=== PATIENT | male | born 1980 | race Caucasian/White ===

== ENCOUNTER 2024-10-11 07:32 | Outpatient (CLI) | payer OTHER, SELFPAY ==
--- NOTE | ~2024-10-11 | US_ITS ---
Left groin ULTRASOUND Ordering provider: Angeles Ye, ACCOUNTS SPECIALIST History: . Non-recurrent inguinal hernia w/o obstruction or gangrene . Comparison: None. FINDINGS/impression: Breech is noted in the left groin with movement suggestive of hernia measuring 2.1 x 1.8 cm. Clinical correlation advised. Reviewed, dictated and finalized at location A. C DEVELOPER
== END 2024-10-11 07:33 | disposition home or self-care (01) ==
PROVIDERS: PCP Registered Nurse; Visit Provider Registered Nurse
DX: K40.90 Unilateral inguinal hernia, without obstruction or gangrene, not specified as recurrent (principal)
CPT/HCPCS: 76882

== ENCOUNTER 2024-12-10 07:49 | Outpatient (CLI) | payer OTHER, SELFPAY ==
--- OUTSIDE RECORDS SUMMARY | 2024-12-10 07:58 | XMS_ITS | Clinical Summary ---
Author Organization [facility] Address [address] [place] [address] Care Team Providers Care Director New Product Name Role Phone Angeles Ye Primary Care Provider Allergies No known active allergies Medications vitamin B-12 (CYANOCOBALAMIN) 250 MCG Tab Take 1 tablet (250 mcg total) by mouth daily. Active vitamin D3 (CHOLECALCIFEROL ) 25 mcg tablet Take 1 tablet (25 mcg total) by mouth daily. Active BIOTIN OR Active VITAMIN E OR Active Active Problems Problem Noted Date Diagnosed Date Moderate episode of recurren t major depressive disorder ([facility]) 05/09/2020 Anxiety 05/09/2020 Current every day smoker 05/09/2020 Encounters Date Type Department Care Team Description 10/14/2024 Scan [facility] Scanned, Doc Med Group 10/11/2024 Scan [facility] INFO [facility] Scanned, Doc Med Group Ultrasound (SCAN) 10/11/2024 Telephone [facility] Family & Internal [address] [phone] Angeles Ye APNP Problem ([place]) 10/08/2024 2:20 PM PATIENT SVCS MGR Office Visit [facility] Internal [address] [phone] Angeles Ye APNP Disability 10/08/2024 Travel 10/07/2024 Scan [facility] HEALTH INFO SRVCS Scanned, Doc Med Group 09/28/2024 10:40 AM PATIENT SVCS MGR Office Visit [facility] Family & Internal Medicine [address] [phone] Angeles Ye, FAVIO Lump (Pelvic area, left) 09/28/2024 Travel from Last 3 Months Immunizations Name Administration Dates Next Due Influenza Adult (Generic) 08/12/2020 Tdap (Adacel) 12/30/2023 Family History Medical History Relation Comments Alcohol Abuse Father Cancer Father Alcohol Abuse Mother Drug Abuse Mother Mental Health Mother Alcohol Abuse Sister 1 Depression Sister 1 Drug Abuse Sister 1 Mental Health Sister 1 Miscarriages / Stillbirths Sister 1 Mental Health Sister 2 Alcohol Abuse Sister 3 Drug Abuse Sister 3 Mental Health Sister 3 Relation Status Comments Father Mother Alive Sister 1 Alive Sister 2 Alive Sister 3 Social History Tobacco Use Types Packs/Day Years Used Date Smoking Tobacco: Some Days Cigarettes 0.3 33.1 Started: 1991 Smokeless Tobacco: Never Tobacco Cessation:Ready to Q uit: Not Asked; Counseling Given: Not Answered Comments:provider to prevocational/rehabilitation counselor Alcohol Use Standard Drinks/Week Comments Yes 10 (1 standard drink = 0.6 oz pu re alcohol) AUDIT-C Answer Date Recorded Frequency of Alcohol Consumption 4 or more times a week 05/08/2020 Average Number of Drinks 5 or 6 020 Frequency of Binge Drinking Daily or almost cordell y 05/08/2020 PHQ-2 Answer Date Recorded Patient Health Questionnaire-2 Score 0 12/30/2023 Sex and Gender Information Value Date Recorded Sex Assigned at Not on file Legal Sex Male 11:18 PM PATIENT SVCS MGR Gender Identity Not on file Sexual Orientation Not on file Last Filed Vital Signs Vital Sign Reading Time Taken Comments Blood Pressure 108/64 10/08/2024 2:11 PM PATIENT SVCS MGR Pulse 82 10/08/2024 2:11 PM PATIENT SVCS MGR Temperature 36.8 C (98.3 F) 10/08/2024 2:11 PM PATIENT SVCS MGR Respiratory Rate 16 10/08/2024 2:11 PM PATIENT SVCS MGR Oxygen Saturation 98% 10/08/2024 2:11 PM PATIENT SVCS MGR Inhaled Oxygen Concentration - - Weight 65.9 kg (145 lb 3.2 oz) 10/08/2024 2:11 P M PATIENT SVCS MGR Height 177.8 cm (5' 10 ) 10/08/2024 2:11 PM PATIENT SVCS MGR Body Mass Index 20.83 10/08/2024 2:11 PM PATIENT SVCS MGR Plan of Treatment Health Maintenance Due Date Last Done Comments Annual Physical 1985 Pneumococcal Vaccine: Pediat rics (0 to 5 Years) and At-Risk Patients (6 to 64 Years) (1 of 2 - PCV) 1988 Hepatitis C 2000 Hepatitis B Vaccines (1 of 3 - 19+ 3-dose series) 2001 COVID-19 Vaccine ( - 2023-2 5 season) 2024 Influenza Adult (#1) 2024 08/12/2020 PHQ-2 (Physician [place]) 10/27/2024 12/30/2023 PHQ-2 (Physician [place]) 12/29/2024 12/30/2023 DTaP, Tdap and Td Vaccines ( 2 - Td or Tdap) 12/29/2033 12/30/2023 HPV Vaccines Aged Out No longer eligi ble based on patient's age to complete this topic Meningococcal B Vaccine Aged Out No l onger eligible based on patient's age to complete this topic Meningococcal Vaccine Aged Out No martita astrid eligible based on patient's age to complete this topic RSV Immunizations Under 20 Months Aged Out No longer eligible based on patient's age to complete this topic Procedures Procedure Name Priority Date/Time Associated Diagnosis Comments ULTRASOUND GENERIC (SCAN ORDER) 10/11/2024 from Last 3 Months Results * ULTRASOUND GENERIC (SCAN ORDER) (10/11/2024) Anatomical Region Laterality Modality Other 10/11/2024 us Doc Med Group Scanned SCANNING Final Resu lt from Last 3 Months Insurance [facility] UMR Advance Directives Documents on File Type Date Recorded Patient Trouble Tracer Expl anation Legal Documents 02/15/2015 SLEGAL Care Teams Director New Product Relationship Specialty Start Date End Date Angeles Ye APNP [address] [place] [id number] PCP - General NURSE PRACTITIONER 04/04/20
[2024-12-10 08:37] LABS: Basophils Absolute Auto 0.1 K/mm3 (0.0-0.1); Basophils Percent Auto 0.5 % (0.2-1.2); Eosinophils Absolute Auto 0.5 K/mm3 (0-0.3); Eosinophils Percent Auto 4.5 % (0-4.4); Hemoglobin 16.5 g/dL (14.0-18.0); Immature Granulocyte Absolute 0.03 K/mm3 (0.00-0.031); Immature Granulocyte Percent A 0.3 % (0-0.5); Lymphocytes Absolute Auto 2.33 K/mm3 (0.9-3.2); Lymphocytes Percent Auto 22.9 % (18.3-44.2); Mean Corpuscular HGB Conc 33.7 g/dl (32-36); Mean Corpuscular Hemoglobin 33.4 pg (26-34); Mean Corpuscular Volume 99.2 fl (80-100); Monocytes Absolute Auto 0.9 K/mm3 (0.1-0.6); Monocytes Percent Auto 8.8 % (2.6-8.5); Neutrophils Absolute Auto 6.4 K/mm3 (1.3-6.7); Platelet Count Result 211 k/mm3 (150-375); Red Blood Count 4.94 M/mm3 (4.6-6.20); Red Cell Distribution Width 12.1 % (11.5-14.5); White Blood Count 10.2 K/mm3 (4.5-10.0)
== END 2024-12-10 07:50 | disposition home or self-care (01) ==
PROVIDERS: PCP Registered Nurse; Visit Provider Surgery
DX: K40.90 Unilateral inguinal hernia, without obstruction or gangrene, not specified as recurrent (principal)
CPT/HCPCS: 36415; 85025; 86850; 86900; 86901

== ENCOUNTER 2025-01-24 02:09 | Day surgery (SDC) | payer OTHER, SELFPAY ==
[2024-11-29 09:52] VITALS: BMI 21.4
--- NOTE | 2024-11-29 10:05 | SUR.PREOP ---
Report to the Outpatient Waiting Room, entrance under the green pavilion located off [facility], at time 10:00a.m.on date 12/13/2024. Planned Procedure Time: 12:00p.m.? Time changes happen often and if your time is changed the preop area will call you the afternoon before. - You and your visitor will be asked to self-screen and do not enter if you have any COVID symptoms. Please call surgeon if you need to reschedule. - A mask is optional within the hospital at this time. Patients may have clear liquids (water, carbonated beverages, clear teas, apple juice) until 3 hours prior to surgery with a maximum of 20 ounces. - No food from midnight until time of surgery and no smoking. This includes no chewing gum, candy or mints. Take only the following medications with a SIP of water on the morning of surgery: N/A DO NOT STOP ANY OF YOUR OTHER PRESCRIPTION MEDICATIONS PRIOR TO SURGERY EXCEPT THE FOLLOWING Medications to discontinue per physician Vitamins and supplements Date to take last dose 12/10/2024 Please no make-up, nail iraqi, hairspray, perfume, deodorant, or body powder the day of surgery.? No jewelry (including any body piercings) or valuables the day of surgery, leave them at home.? Please take a shower or bath the night before, or the morning of, surgery with an antibacterial soap.? Wear comfortable, loose fitting clothing.? Children are encouraged to wear pajamas. - Jewelry must be removed prior to entering the operating room.? Rings and piercings that are not removed may be cut off. - The hospital will not accept responsibility for valuables.? - Please leave all valuables, including medications, at home the day of surgery. If you are going home after surgery, a licensed bottom hoop driver must drive you home.? - NO public transportation without another adult if you receive anesthesia. - We recommend that an adult stay with you for 24 hours following discharge. - We also recommend that you do not drive, make important decision, drink alcoholic beverages, or take any drugs that were not prescribed by your health care provider for at least 24 hours after your discharge time. Hold all vitamins and supplements for 3 days per anesthesiologist. Follow any additional instructions given to you from your surgeon. Telephone instructions given to Russel Chavez and asked if any additional questions and then verbalized understanding. Patient advised to call surgeon office or pre surgery nurse liaison [phone] if any additional questions.
--- OUTSIDE RECORDS SUMMARY | 2024-12-13 01:39 | XMS_ITS | Clinical Summary ---
Author Organization [facility] Address [address] [place] [address] Care Team Providers Care Milling Machinist Name Role Phone Angeles Ye Primary Care [...] episode of recurren t major depressive disorder ([facility]) 05/09/2020 Anxiety 05/09/2020 Current every day smoker 05/09/2020 Encounters Date Type Department Care Team Description 10/14/2024 Scan [facility] INFO SRVCS Scanned, Doc Med Group 10/11/2024 Scan [facility] INFO SRVCS Scanned, Doc Med Group Ultrasound (SCAN) 10/11/2024 Telephone [facility] Family & Internal [address] [phone] Angeles Ye APNP Problem ([place]) 10/08/2024 2:20 PM EQUIPMENT LEAD Office Visit [facility] Internal [address] [phone] Angeles Ye APNP Disability 10/08/2024 Travel 10/07/2024 Scan [facility] INFO SRVCS Scanned, Doc Med Group 09/28/2024 10:40 AM EQUIPMENT LEAD Office Visit [facility] Family & Internal Medicine [address] [phone] Angeles Ye, FAVIO Lump (Pelvic area, left) [...] Asked; Counseling Given: Not Answered Comments:provider to student services counselor Alcohol Use Standard Drinks/Week Comments Yes [...] on file Legal Sex Male 11:18 PM EQUIPMENT LEAD Gender Identity Not on file Sexual Orientation Not on file Last Filed Vital Signs Vital Sign Reading Time Taken Comments Blood Pressure 108/64 10/08/2024 2:11 PM EQUIPMENT LEAD Pulse 82 10/08/2024 2:11 PM EQUIPMENT LEAD Temperature 36.8 C (98.3 F) 10/08/2024 2:11 PM EQUIPMENT LEAD Respiratory Rate 16 10/08/2024 2:11 PM EQUIPMENT LEAD Oxygen Saturation 98% 10/08/2024 2:11 PM EQUIPMENT LEAD Inhaled Oxygen Concentration - - Weight 65.9 kg (145 lb 3.2 oz) 10/08/2024 2:11 P M EQUIPMENT LEAD Height 177.8 cm (5' 10 ) 10/08/2024 2:11 PM EQUIPMENT LEAD Body Mass Index 20.83 10/08/2024 2:11 PM EQUIPMENT LEAD Plan of Treatment Health Maintenance Due Date Last Done Comments Annual Physical 1985 Pneumococcal Vaccine: Pediat rics (0 to 5 Years) and At-Risk Patients (6 to 64 Years) (1 of 2 - PCV) 1988 Hepatitis C 2000 Hepatitis B Vaccines (1 of 3 - 19+ 3-dose series) 2001 COVID-19 Vaccine ( - 2023-2 5 season) 2024 Influenza Adult (#1) 2024 08/12/2020 PHQ-2 (Physician [place]) 10/27/2024 12/30/2023 PHQ-2 (Physician [place]) 12/29/2024 12/30/2023 DTaP, Tdap and Td Vaccines [...] Resu lt from Last 3 Months Insurance [facility] UMR Advance Directives Documents on File Type Date Recorded Patient Dockworker Expl anation Legal Documents 02/15/2015 SLEGAL Care Teams Milling Machinist Relationship Specialty Start Date End Date Angeles Ye APNP [address] [place] [id number] PCP - General NURSE PRACTITIONER 04/04/20
--- NOTE | 2025-01-12 16:51 | PC.NURSE ---
Verified no changes in patient's health history, medications or allergies since previous interview in November. Instructed patient to discontinue vitamins 3 days prior to surgery. Patient arrival time of 10:00am for 12:00pm surgery on 01/24/2025. NPO from midnight until time of surgery. Clear liquids allowed until 9:00am with a maximum of 20 ounces.
--- NOTE | 2025-01-23 15:15 | P.SS_ITS ---
Same Day Admit/Disch: HPI History of Present Illness Chief complaint: Lt Ing Hernia Narrative: Russel Chavez is a 44 year old male who began noting a left inguinal bulge in early September. He was seen by his primary care provider who diagnosed a left inguinal hernia. He had an ultrasound which also suggested left inguinal hernia. He was seen in the office and found to have a reducible left inguinal hernia. It is occasionally painful. After discussion, he is taken to surgery now for robotic laparoscopic repair of left inguinal hernia. He does have a history of a right inguinal hernia repair as a child. [facility] Past Medical History Medical History (Updated 01/24/25 @ 16:53 by Alex Oconnell MD) GERD (gastroesophageal reflux disease) Lupus Anxiety Surgical History Surgical History History of right inguinal hernia repair 1986 as a child Family History Family History Mother Alcoholism Depression Father Alcoholism History of sinus cancer Sibling Alcoholism Depression Other Family history of mental disorder Social History Social History (Updated 01/24/25 @ 11:05 by Andrew Ward DO) Smoking packs per day: 0.5 Smoking cigarettes per day: 10.0 Years smoked: 30 Smoking pack-years: 15.00 Smoking status: Current every day smoker Tobacco type: cigarettes Smoking end date: 10/27/10 Alcohol intake: current Alcohol use details: 6/day Substance use: current Substance use type: marijuana Other substance usage details: once daily Do You Feel Safe in your Home?: Yes Lack of Transportation: No Lack of Food: Never True Current Housing: I Have Housing Concerned About Future Housing: No Difficulty Paying Gas/Electric Bills: No Difficulty Paying for Meds: No Currently Unemployed: No Education: Grade School Difficulty w/ Childcare or Family Care: No Living arrangements: with family Same Day Admit/Disch: Med Pre-admit Medications Home Medications ?Medication ?Instructions ?Recorded ?Confirmed ?Type biotin 5,000 mcg sublingual tablet 5,000 mcg sublingual DAILY 11/29/24 01/24/25 History cholecalciferol (vitamin D3) 10 10 mcg PO DAILY 11/29/24 01/24/25 History mcg (400 unit) tablet (Vitamin D3) vitamin B complex (Balanced B-50 1 tablet PO DAILY 11/29/24 01/24/25 History tablet) vitamin E 180 mg BYMOUTH DAILY 11/29/24 01/24/25 History ketorolac 10 mg tablet 10 mg PO Q6H 4 days #16 tabs 01/24/25 Rx oxycodone-acetaminophen 5 mg-325 0.5 - 1 tablet PO Q4H PRN pain #10 01/24/25 Rx mg tablet (Percocet) tabs Review of Systems Review of Systems All systems reviewed & are unremarkable except as noted in HPI and below (HPI) Exam Const: General: comfortable, no acute distress, alert and awake HENMT: Head: normocephalic and atraumatic Mouth: Yes Normal oral and palatal mucosa present Eyes: Conjunctivae: conjunctivae normal Pupils: Equal, round and reactive pupils present EOM: EOMs intact bilaterally Neck: Neck: normal visual inspection, no lymphadenopathy and nontender Resp: Effort & Inspection: normal respiratory effort Auscultation: clear to auscultation bilaterally Cardio: Rate: regular rate Rhythm: regular rhythm Heart sounds: no gallops, no murmurs and no rubs GI: Inspection: non-distended GI Palp: Yes Soft to palpation, No Tenderness to palpation present (GI), No Hepatomegaly present and No Splenomegaly present : Male General Exam: Yes hernia (Reducible left inguinal hernia) Penis: Yes normal penis Scrotum: scrotum normal Testes: Testes normal Skin: Lesions: no lesions Rashes: no rashes Neuro: General: no focal motor deficits and CN's II-XI intact bilaterally Cranial nerves: Yes Equal, round and reactive pupils present, Yes Bilaterally intact EOM present, Yes facial symmetry and Yes Midline tongue present Speech: normal speech Motor exam (neuro): 5/5 motor strength present throughout and Motor abnormalities not present Extrem: General: no clubbing, cyanosis or edema and edema Psych: Affect: normal affect Thought process: Normal thought process present Insight: Good insight present (Psych) DS: Summary Time Spent with Patient Time attestation: Total time spent providing and/or coordinating discharge services: DS: Admitting Diagnosis Discharge Date 01/24/2025 Admitting Diagnosis * Symptomatic, reducible, left inguinal hernia-plan to proceed with robotic laparoscopic repair using mesh. The procedure, risks, benefits, alternatives have been discussed. The usual length of the surgery, the use of mesh, the length of recovery and time off work have been discussed. All questions were answered, he understands and agrees to go ahead. * Smoker DS: Discharge Diagnosis Discharge Diagnosis (1) Left inguinal hernia: Code(s): K40.90 - Unilateral inguinal hernia, without obstruction or gangrene, not specified as recurrent Status: Chronic (2) Tobacco use: Code(s): Z72.0 - Tobacco use Status: Chronic Discharge Plan Discharge Patient Disposition: Home, Self-Care Discharge Instructions: 1. May shower the day after surgery over incisions. 2. Call office for: -Wound increasingly painful or bleeding -Vomiting -Fever of greater than 101 degrees 3. Wear scrotal support at all times except when sleeping or showering for 1 week. 4. If no bowel movement for three days, take 1 oz. (30 ml) Milk of Magnesia, if no results, take Fleets enema. 5. No heavy lifting > 15-20 pounds for 2 weeks. 6. No driving for 3 days or while taking narcotic pain medications. 7. Up walking 10-30 minutes three times per day. 8. Resume previous home medications. 9. Follow-up 10-14 days in office for wound check or as previously scheduled. 10. Oral pain medications prescription to be sent home with patient. 11. NUTRITION: Start out by drinking fluids and increase your diet as tolerated. If you experience nausea, try dry toast, crackers, and 7-UP. If nausea or vomiting persists, contact your surgeon?s office. Oxycodone given at 3:50pm. No pain medicine next until at least 7:50pm. Patient Language: Icelandic Stand Alone Forms: General Discharge Instructions Follow-up/Referrals: Alex Oconnell MD [Physician] - 3 Weeks Discharge Medications: New ketorolac 10 mg tablet 10 mg PO Q6H 4 Days Qty: 16 0RF oxycodone-acetaminophen [Percocet] 5-325 mg tablet 0.5 - 1 tablet PO Q4H PRN (Reason: pain) Qty: 10 0RF Continued biotin 5,000 mcg tablet, sublingual 5,000 mcg sublingual DAILY cholecalciferol (vitamin D3) [Vitamin D3] 10 mcg (400 unit) tablet 10 mcg PO DAILY vitamin B complex [Balanced B-50] Tablet 1 tablet PO DAILY vitamin E tablet 180 mg BYMOUTH DAILY
[2025-01-24] VITALS (9 sets, daily range): BP systolic 125–138; BP diastolic 78–91; PULSE 71–86; RESP 16–20; TEMP 36.3–36.4; O2SAT 92–99; BMI 23.0
--- OUTSIDE RECORDS SUMMARY | 2025-01-24 02:12 | XMS_ITS | Clinical Summary ---
Author Organization [facility] Address [address] [place] [id number] Care Team Providers Care Rn Compliance Name Role Phone Angeles Ye Primary Care [...] Noted Date Diagnosed Date Moderate episode of recurrent major depressive d isorder 05/09/2020 Anxiety 05/09/2020 Current every day smoker 05/09/2020 Encounters Date Type Department Care Team Description 12/14/2024 Telephone [facility] Family & Internal Medicine [address] [phone] Angeles Ye APNP Disability Form 12/13/2024 Scan HEALTH INFO SRVCS Scanned, Doc Med Group 12/10/2024 Scan HEALTH INFO SRVCS Scanned, Doc Med Group Lab (SCAN) from Last 3 Months Immunizations Name Administration [...] Date Smoking Tobacco: Some Days Cigarettes 0.3 33.2 Started: 1989 Smokeless Tobacco: Never Tobacco Cessation:Ready to Q uit: Not Asked; Counseling Given: Not Answered Comments:provider to primary counselor Alcohol Use Standard Drinks/Week Comments Yes [...] on file Legal Sex Male 11:18 PM PECAN PICKER Gender Identity Not on file Sexual Orientation Not on file Last Filed Vital Signs Vital Sign Reading Time Taken Comments Blood Pressure 108/64 10/08/2024 2:11 PM PECAN PICKER Pulse 82 10/08/2024 2:11 PM PECAN PICKER Temperature 36.8 C (98.3 F) 10/08/2024 2:11 PM PECAN PICKER Respiratory Rate 16 10/08/2024 2:11 PM PECAN PICKER Oxygen Saturation 98% 10/08/2024 2:11 PM PECAN PICKER Inhaled Oxygen Concentration - - Weight 65.9 kg (145 lb 3.2 oz) 10/08/2024 2:11 P M PECAN PICKER Height 177.8 cm (5' 10 ) 10/08/2024 2:11 PM PECAN PICKER Body Mass Index 20.83 10/08/2024 2:11 PM PECAN PICKER Plan of Treatment Health Maintenance Due Date Last Done Comments Annual Physical 1985 Pneumococcal Vaccine: Pediat rics (0 to 5 Years) and At-Risk Patients (6 to 64 Years) (1 of 2 - PCV) 1988 Hepatitis C 2000 Hepatitis B Vaccines (1 of 3 - 19+ 3-dose series) 2001 COVID-19 Vaccine (2023-2 5 season) 2024 PHQ-2 (Physician [place]) 10/27/2024 12/30/2023 DTaP, Tdap and Td Vaccines ( [...] Procedure Name Priority Date/Time Associated Diagnosis Comments OUTSIDE LAB (SCAN ORDER) 12/10/2024 OUTSIDE LAB (SCAN ORDER) 12/10/2024 from Last 3 Months Results * OUTSIDE LAB (SCAN ORDER) (12/10/2024) Only the most recent of2 resultswithin the time period is included. 12/10/2024 us Doc Med Group Scanned SCANNING Final Resu lt from Last 3 Months Insurance Advance Directives Documents on File Type Date Recorded Patient Teacher Of Gifted Students Expl anation Legal Documents 02/15/2015 SLEGAL Care Teams Rn Compliance Relationship Specialty Start Date End Date Angeles Ye APNP [address] [place] [id number] PCP - General NURSE PRACTITIONER 04/04/20
--- NOTE | 2025-01-24 07:55 | WPDANESEPPF ---
Anes - Initial Pre Proc Eval Procedure: Operation Date: 01/24/25 12:00 Proposed Procedures p Robotic Repair Left Inguinal Hernia with Mesh - Alex Oconnell MD Date/Time: 01/24/25 07:55 Surgeon: Alex Oconnell MD Pre Op Diagnosis: Lt Ing Hernia Patient Data Age: 44 Gender: M Height: 1.75 m Weight: 65.8 kg Allergies Allergy/AdvReac Type Severity Reaction Status Date / Time No Known Allergies Allergy Verified 01/24/25 10:44 Home Medications ?Medication ?Instructions ?Recorded ?Confirmed ?Type biotin 5,000 mcg sublingual tablet 5,000 mcg sublingual DAILY 11/29/24 01/24/25 History cholecalciferol (vitamin D3) 10 10 mcg PO DAILY 11/29/24 01/24/25 History mcg (400 unit) tablet (Vitamin D3) vitamin B complex (Balanced B-50 1 tablet PO DAILY 11/29/24 01/24/25 History tablet) vitamin E 180 mg BYMOUTH DAILY 11/29/24 01/24/25 History Patient hx anesthesia problems: none Family hx anesthesia problems: none Results Review: All pre-operative results and documents have been reviewed as part of the pre-operative evaluation. [facility] Past Medical History Medical History (Updated 01/24/25 @ 07:55 by Andrew Ward DO) GERD (gastroesophageal reflux disease) Lupus Anxiety Surgical History Surgical History History of right inguinal hernia repair 1986 as a child Family History Family History Mother Alcoholism Depression Father Alcoholism History of sinus cancer Sibling Alcoholism Depression Other Family history of mental disorder Social History Social History (Updated 01/24/25 @ 11:05 by Andrew Ward DO) Smoking packs per day: 0.5 Smoking cigarettes per day: 10.0 Years smoked: 30 Smoking pack-years: 15.00 Smoking status: Current every day smoker Tobacco type: cigarettes Smoking end date: 10/27/10 Alcohol intake: current Alcohol use details: 6/day Substance use: current Substance use type: marijuana Other substance usage details: once daily Do You Feel Safe in your Home?: Yes Lack of Transportation: No Lack of Food: Never True Current Housing: I Have Housing Concerned About Future Housing: No Difficulty Paying Gas/Electric Bills: No Difficulty Paying for Meds: No Currently Unemployed: No Education: Grade School Difficulty w/ Childcare or Family Care: No Living arrangements: with family Rosymarian - James[place] Final PreProcedure Day of Procedure 01/24/25 07:55 Patient weight: normal Heart: regular rate and rhythm Lungs: clear to auscultation Airway: Mallampati scale class II Neurological: alert and oriented Last oral intake: >/= 8 hours ASA classification: III Emergent: no Anesthetic plan: proceed Anesthesia type and monitoring: general ETT and standard monitoring Results Review: All pre-operative results and documents have been reviewed as part of the pre-operative evaluation. Informed Consent: The patient's anesthetic plan and its attendant risks and benefits were discussed with the patient/family/POA. Questions were solicited and answers provided to the satisfaction of the patient/family/POA.
[2025-01-24] MEDS: LACTATED RINGERS 1,000 ML 30 ML IV CONT ×2 (10:20→14:30)
[2025-01-24 10:22] LABS: Basophils Absolute Auto 0.1 K/mm3 (0.0-0.1); Basophils Percent Auto 0.6 % (0.2-1.2); Eosinophils Absolute Auto 0.3 K/mm3 (0-0.3); Eosinophils Percent Auto 3.5 % (0-4.4); Hematocrit 46.7 % (42.0-52.0); Hemoglobin 15.9 g/dL (14.0-18.0); Immature Granulocyte Absolute 0.02 K/mm3 (0.00-0.031); Immature Granulocyte Percent A 0.2 % (0-0.5); Lymphocytes Absolute Auto 1.74 K/mm3 (0.9-3.2); Lymphocytes Percent Auto 20.9 % (18.3-44.2); Mean Corpuscular Hemoglobin 33.3 pg (26-34); Mean Corpuscular Volume 97.9 fl (80-100); Monocytes Absolute Auto 0.7 K/mm3 (0.1-0.6); Monocytes Percent Auto 7.8 % (2.6-8.5); Neutrophils Absolute Auto 5.6 K/mm3 (1.3-6.7); Platelet Count Result 209 k/mm3 (150-375); Red Blood Count 4.77 M/mm3 (4.6-6.20); Red Cell Distribution Width 12.4 % (11.5-14.5); White Blood Count 8.3 K/mm3 (4.5-10.0)
[2025-01-24] MEDS: ACETAMINOPHEN 500 MG TABLET 1000 MG PO (10:28)
[2025-01-24] MEDS: KETOROLAC 15 MG/ML VIAL (*BKC) IV PUSH (10:28)
--- NOTE | 2025-01-24 11:55 | SUR.PREOP ---
1155- Notified patient and spouse of procedure delay. Patient verbalized understanding and denying needs at this time.
--- NOTE | 2025-01-24 12:26 | WPDHPUPDATE1 ---
History and Physical Update Update Date/Time: 01/24/25 12:26 History and Physical has been reviewed, including an updated exam of the patient. There are NO changes in the patient's condition. Risks, benefits, and alternatives have been discussed and questions answered. Patient agrees to proceed with procedure.
[2025-01-24] MEDS: ceFAZolin 2 GM/D5W 50 ML 2 GM/50 ML BAG IVPB (12:36)
[2025-01-24] MEDS: BUPIVACAINE/EPINEPHRINE 0.5% 30 ML VIAL INFILTRATE (12:54)
[2025-01-24] MEDS: fentaNYL CITRATE INJ (*CRX) 100 MCG/2 ML VIAL 25 MCG IV PUSH ×8 (14:44→15:18)
[2025-01-24] MEDS: oxyCODONE HCL (*CRX) 5 MG TAB IR PO (15:52)
--- NOTE | 2025-01-24 16:36 | P.OP_ITS ---
Procedure Note - Detailed Date of Procedure 01/24/25 Pre-op Diagnosis Lt Ing Hernia Post-op Diagnosis Same Procedure Performed Robotic laparoscopic repair left inguinal hernia with mesh Surgeon Alex Oconnell MD [employer] Amalia Johnson [facility] Anesthesia General and Local Indications Patient has had a left inguinal bulge that is occasionally painful for quite some time. He was seen in the office and diagnosed with a left inguinal hernia. He is taken to surgery now for robotic laparoscopic repair with mesh. Findings This was a large direct hernia that actually extended lateral to the inferior epigastric vessels involving both the indirect and direct spaces. Description of Procedure Patient was taken to surgery and induced into general anesthesia. The abdomen is prepped and draped. Trocars were placed in the usual fashion 1st using an applied Medical optical trocar in the left upper quadrant. Local was infiltrated prior to placement of each of the trocars. The other 2 trocars placed were 8 mm robotic trocars. The camera was then moved and the applied Medical 5 mm port was changed out for an 8 mm robotic port. Patient was placed in 18 ? Trendelenburg. The robot was brought into the field and the camera was docked and targeted. The operating ports were docked and instruments were positioned appropriately. The surgeon then left the sterile field and went to the robotic console. A peritoneal incision was made anteriorly across the inguinal canal structures. Peritoneum was dissected broadly from the incision on posterior. Dissection was carried just posterior to the left rectus abdominus muscle down to Michael's ligament. From there we dissected Michael's ligament and the pubis. Dissection was carried out across the midline exposing at least a couple of cm of the right rectus muscle. Lateral dissection was carried out to an adequate posterior extent. We then turned our attention to the area of the hernia. Placing traction on the tissue at the base of the inferior epigastric vessel we were able to see the transversalis fascia. Transversalis fascia was carefully dissected away from the fatty tissue in the hernia defect. I then place traction on the peritoneum leading to the indirect space. There was a large lipoma in the indirect space as well as a sizable extension of the hernia defect that was primarily in the direct space. The lipo matous tissue was slowly reduced, dividing transversalis fascia until it was able to be completely reduced. Care was then taken to dissect the lipomatous tissue and the peritoneum off the vas deferens and cord vasculature. We then went back to the medial side of the cord structures and continued dissection here until the package line relief operator plug was seen. Michael's ligament and the pubis were dissected adequately including 1-2 cm posterior to all these structures. Some additional peritoneal dissection was carried out until the peritoneum was well away from the area of the hernias to avoid a posterior recurrence. An extra- large, 12 x 17 cm left mid 3DMax mesh was then positioned over the inguinal canal structures. 3-0 Vicryl was used to secure the mesh to Michael's ligament. Two additional 3-0 Vicryl sutures were used to secure the mesh to the anterior abdominal wall, 1 on either side of the inferior epigastric vessels. This provided excellent coverage. All looked good. Three 0 V lock was then used to close the peritoneal opening in running fashion. The needles used were then all retrieved from the peritoneal cavity as was any loose suture material. We then removed the instruments and undocked the robot. CO2 was evacuated and the trocars were removed. All skin wounds were closed with subcuticular 4-0 Monocryl skin suture. An athletic supporter was placed. Patient was awakened and taken to recovery in good condition. Sponge needle counts were correct x2. Estimated Blood Loss -5 Drains No Packing No Pathology None sent Complications None Condition Stable Disposition PACU [facility] Billing Surgery - Charge Forward: Surgery Billing (Robotic laparoscopic repair left inguinal hernia with mesh)
== END 2025-01-24 16:55 | disposition home or self-care (01) ==
PROVIDERS: PCP Registered Nurse; Visit Provider Surgery
PROC: 8E0Y4CZ Robotic Assisted Procedure of Lower Extremity, Percutaneous Endoscopic Approach (ICD-10-PCS; CPT 49650; principal; 2025-01-24 12:00)
DX: K40.90 Unilateral inguinal hernia, without obstruction or gangrene, not specified as recurrent (principal); D17.79 Benign lipomatous neoplasm of other sites; G89.18 Other acute postprocedural pain; K21.9 Gastro-esophageal reflux disease without esophagitis; F41.9 Anxiety disorder, unspecified; M32.9 Systemic lupus erythematosus, unspecified; F12.90 Cannabis use, unspecified, uncomplicated; F17.210 Nicotine dependence, cigarettes, uncomplicated; Z79.891 Long term (current) use of opiate analgesic; Z80.2 Family history of malignant neoplasm of other respiratory and intrathoracic organs
CPT/HCPCS: 49650; S2900; 36415; 85025; 86850; 86900; 86901; A9270; C1781; J0690; J1100; J1885; J2250; J2405; J2704; J3010; J7030; J7120

== ENCOUNTER 2025-02-04 07:46 | Outpatient (CLI) | payer OTHER, SELFPAY ==
--- NOTE | ~2025-02-04 | XR_ITS ---
EXAM/PROCEDURE: XR chest 2V - 02/04/2025 07:50 CDT HISTORY: 44 years old Male with Z98.890 - Other specified postprocedural states TECHNIQUE: Two view(s) of the chest. COMPARISON: None available. FINDINGS: LUNGS/ PLEURA: No focal consolidation. Mild perihilar bronchial wall thickening. Linear opacity in th e left lung base may represent atelectasis and/or scarring. HEART/ MEDIASTINUM: Heart appears normal in size. BONES: Degenerative changes. OTHER: Visualized upper abdomen is unremarkable. IMPRESSION: No focal consolidation. Mild perihilar bronchial wall thickening, findings suggestive of respiratory bronchiolitis. Reviewed, dictated and finalized at location A. IMPRESSION: No focal consolidation. Mild perihilar bronchial wall thickening, findings sugg estive of respiratory bronchiolitis.
== END 2025-02-04 07:47 | disposition home or self-care (01) ==
PROVIDERS: PCP Registered Nurse; Visit Provider Surgery
DX: Z98.890 Other specified postprocedural states (principal); Z87.19 Personal history of other diseases of the digestive system
CPT/HCPCS: 71046